=== PATIENT | male | born 1970 | race Two or more races ===

== ENCOUNTER 2022-07-10 16:16 | Emergency (ER) | payer OTHER ==
[2022-07-10 17:07] VITALS: BP 134/89; PULSE 113; RESP 19; TEMP 98.1; BMI 32.3
[2022-07-10] MEDS ORDERED: KETOROLAC TROMETHAMINE 30 MG/1 ML VIAL IM ONE (17:47)
== END 2022-07-10 18:35 | disposition home or self-care (01) ==
LOC: JERFT 16:16 → JER 16:16 → JERFT 18:35
PROC: 3E0233Z Introduction of Anti-inflammatory into Muscle, Percutaneous Approach (ICD-10-PCS; principal; 2022-07-10)
DX: S82.001A Unspecified fracture of right patella, initial encounter for closed fracture (principal); W11.XXXA Fall on and from ladder, initial encounter
CPT/HCPCS: 73552-TC-RT-FY; 73562-TC-RT-FY; 73590-TC-RT-FY; 73610-TC-RT-FY; 73630-TC-RT-FY; 99285-25

== ENCOUNTER 2022-08-04 12:35 | Inpatient (IN) | payer OTHER ==
[2022-08-04] MEDS ORDERED: ACETAMINOPHEN 1000 MG/100 ML BAG IVPB ONE (13:19)
[2022-08-04] MEDS ORDERED: ACETAMINOPHEN INJECTION 100 ML IVPB ONE (13:29)
[2022-08-04 14:24] LABS: HEMATOCRIT 46.8 % (35.4-49); MCH 30.2 pg (25.7-33.7); MCHC 34.1 g/dl (32.0-35.9); MEAN CELL VOLUME 88.5 fl (80-96); MEAN PLT VOLUME 8.8 fl (7.5-11.1); PLATELET COUNT 221.5 10^3/uL (134-434); RBC 5.29 10^6/uL (4.00-5.60); RDW 13.6 % (11.9-15.9); WHITE BLOOD COUNT 3.4 10^3/uL (4.0-10.8)
[2022-08-04 14:33] LABS: INR 1.15 (0.83-1.09); PROTHROMBIN TIME (PATIENT) 13.2 SEC (9.7-13.0)
[2022-08-04 14:36] LABS: ACTIVATED PTT 33.7 SECONDS (25.2-36.5)
[2022-08-04 14:40] LABS: ALBUMIN 4.2 g/dl (3.4-5.0); BILIRUBIN,TOTAL 0.8 mg/dl (0.2-1); CALCIUM 9.6 mg/dl (8.5-10); CREATININE 0.9 mg/dl (0.55-1.3); TOT PROT 7.5 g/dl (6.4-8.2)
[2022-08-04] MEDS ORDERED: ACETAMINOPHEN 325 MG TABLET (FP) PO PRN (14:45)
[2022-08-04 15:29] VITALS: BMI 30.2
[2022-08-05] MEDS ORDERED: BUPIVACAINE LIPOSOME/PF (EXPAREL) 266 MG/20 ML VIAL ONE (07:14)
[2022-08-05] MEDS ORDERED: MIDAZOLAM HCL 2 MG/2 ML SINGLE DOSE VIAL ONE (07:14)
[2022-08-05] MEDS ORDERED: BUPIVACAINE HCL 100 ML ONE (07:14)
[2022-08-05] MEDS ORDERED: PROPOFOL 20 ML ONE ×3 (07:19→09:07)
[2022-08-05] MEDS ORDERED: SUCCINYLCHOLINE CHLORIDE 200 MG/10 ML SYRINGE ONE (07:19)
[2022-08-05 07:29] LABS: CALCIUM 9.3 mg/dl (8.5-10); CREATININE 0.9 mg/dl (0.55-1.3)
[2022-08-05] MEDS ORDERED: ACETAMINOPHEN 325 MG TABLET (FP) PO PRN (10:03)
[2022-08-05] MEDS ORDERED: oxyCODONE HCL 5 MG TABLET PO PRN ×3 (10:03→10:35)
[2022-08-05 10:17] LABS: BASO % 0.6 % (0-2.0); EOS % 1.5 % (0-4.5); HEMATOCRIT 46.2 % (35.4-49); HEMOGLOBIN 15.1 GM/dL (11.7-16.9); MCH 28.8 pg (25.7-33.7); MCHC 32.7 g/dl (32.0-35.9); MEAN CELL VOLUME 88.2 fl (80-96); MEAN PLT VOLUME 9.6 fl (7.5-11.1); MONO % 9.7 % (3.8-10.2); NEUT % 39.2 % (42.8-82.8); PLATELET COUNT 255 10^3/uL (134-434); RBC 5.24 M/mm3 (4.00-5.60); RDW 13.4 % (11.9-15.9); WHITE BLOOD COUNT 4.1 K/mm3 (4.0-10.0)
[2022-08-05] MEDS ORDERED: FENTANYL CITRATE/PF 50 MCG/ML VIAL ONE (10:33)
[2022-08-05] MEDS ORDERED: ONDANSETRON 4 MG/2 ML VIAL IVPUSH PRN (10:34)
[2022-08-05] MEDS ORDERED: LACTATED RINGERS SOLUTION 1,000 ML IV SCH (10:45)
[2022-08-05] MEDS: ACETAMINOPHEN 1000 MG/100 ML BAG IVPB ONE ×2 (10:50→16:53)
[2022-08-05] MEDS: KETOROLAC TROMETHAMINE 30 MG/1 ML VIAL IVPUSH SCH ×2 (12:00→16:00)
[2022-08-05] MEDS: oxyCODONE HCL 5 MG TABLET PO PRN ×2 (13:48→16:52)
[2022-08-05 14:14] VITALS: BP 136/84; PULSE 91; RESP 18; TEMP 98.4
[2022-08-05] MEDS ORDERED: ACETAMINOPHEN 500 MG TABLET (FP) PO SCH (18:00)
[2022-08-05] MEDS ORDERED: oxyCODONE HCL 10 MG SUSTAINED ACTING TABLET PO SCH (22:00)
== END 2022-08-05 16:45 | disposition home or self-care (01) | DRG 317 ==
LOC: FER 12:35 → FM/S 13:56
PROVIDERS: ADMIT Internal Medicine; ATTEND Internal Medicine
PROC: 0LQQ0ZZ Repair Right Knee Tendon, Open Approach (ICD-10-PCS; principal; 2022-08-05 08:17)
DX: S76.111A Strain of right quadriceps muscle, fascia and tendon, initial encounter (principal); M25.561 Pain in right knee; W11.XXXA Fall on and from ladder, initial encounter; Y92.89 Other specified places as the place of occurrence of the external cause; Y99.8 Other external cause status
CPT/HCPCS: 0241U-QW; 36415; 71046-TC-FY; 80048; 80053; 85025; 85610; 85730; 93005; 94760; 99285-25; C1713

== ENCOUNTER 2022-12-09 07:27 | Day surgery (SDC) | payer OTHER ==
[2022-12-04 14:19] VITALS: BMI 31.3
[2022-12-09] MEDS ORDERED: DEXAMETHASONE SOD PHOSPHATE 4 MG/1 ML VIAL ONE ×2 (09:09→09:34)
[2022-12-09] MEDS ORDERED: ONDANSETRON 4 MG/2 ML VIAL ONE ×2 (09:09→09:34)
[2022-12-09] MEDS ORDERED: MIDAZOLAM HCL 2 MG/2 ML SINGLE DOSE VIAL ONE ×2 (09:09→09:34)
[2022-12-09] MEDS ORDERED: ROPIVACAINE HCL 0.5% 30ML VIAL ONE (09:10)
[2022-12-09] MEDS ORDERED: BUPIVACAINE HCL/PF 0.25% (2.5MG/ML) 10 ML VIAL ONE (09:29)
[2022-12-09] MEDS ORDERED: PROPOFOL 20 ML ONE (09:34)
[2022-12-09] MEDS ORDERED: ceFAZolin SODIUM 1 GM VIAL ONE (09:42)
[2022-12-09] MEDS ORDERED: HYDROmorphone HCL/PF 1 MG/ML VIAL ONE ×3 (09:50→10:16)
[2022-12-09] MEDS ORDERED: LABETALOL HCL 5 MG/1 ML (100MG/20 ML VIAL) ONE (10:15)
[2022-12-09] MEDS ORDERED: ONDANSETRON 4 MG/2 ML VIAL IVPUSH PRN (12:05)
[2022-12-09] MEDS ORDERED: oxyCODONE HCL 5 MG TABLET PO PRN ×2 (12:05)
[2022-12-09] MEDS ORDERED: ACETAMINOPHEN 1000 MG/100 ML BAG IVPB PRN (12:07)
[2022-12-09] MEDS ORDERED: KETOROLAC TROMETHAMINE 30 MG/1 ML VIAL IVPUSH PRN (12:07)
[2022-12-09] MEDS ORDERED: LACTATED RINGERS SOLUTION 1,000 ML IV SCH (12:15)
[2022-12-09 13:44] VITALS: RESP 18
[2022-12-09 13:48] VITALS: TEMP 96.7
[2022-12-09 15:24] VITALS: BP 129/91; PULSE 98
== END 2022-12-09 16:15 | disposition home or self-care (01) ==
LOC: FASU 07:27
PROVIDERS: ATTEND Orthopaedic Surgery Sports Medicine
PROC: 0LQM0ZZ Repair Left Upper Leg Tendon, Open Approach (ICD-10-PCS; principal; 2022-12-09 10:03)
DX: S76.112A Strain of left quadriceps muscle, fascia and tendon, initial encounter (principal); X58.XXXA Exposure to other specified factors, initial encounter; Y93.9 Activity, unspecified; Y92.9 Unspecified place or not applicable
CPT/HCPCS: 94760; C1713